=== PATIENT | female | born 1955 | race Caucasian/White ===

== ENCOUNTER 2025-01-23 17:58 | Emergency (ER) | payer SELFPAY | END 2025-01-23 21:45 | disposition E | LOC: EDBD → M ED 17:58 → EDSEX 17:58 → EDAGE 17:58 → EDBD 17:58 → M ED 21:45 | DX: I46.9 Cardiac arrest, cause unspecified (principal); V09.9XXA Pedestrian injured in unspecified transport accident, initial encounter; Y92.89 Other specified places as the place of occurrence of the external cause; Y93.89 Activity, other specified; Y99.8 Other external cause status ==